=== PATIENT | female | born 1990 | race Two or more races ===

== ENCOUNTER 2017-02-12 07:15 | Day surgery (SDC) | payer MEDICAID ==
[~2017-02-12] VITALS: Ht 162.6 cm; Wt 83.9 kg
[~2017-02-12 07:15] MED LIST: PREN-96 PO
[2017-02-12] MEDS ORDERED: SODIUM CHLORIDE 0.9% 1,000 ML IVB ONE (07:29)
[2017-02-12] MEDS ORDERED: ONDANSETRON HCL 4 MG/2 ML VIAL IV ONE ×2 (07:30→10:15)
[2017-02-12] MEDS ORDERED: HYDROmorphone HCL 2 MG/ML VL IV ONE (07:30)
[2017-02-12] MEDS ORDERED: LACT. RINGERS/OXYTOCIN 20UNITS 1,000 ML IV ONE (07:45)
[2017-02-12 07:55] LABS: Hematocrit 34.8 % (36.0-46.0); Hemoglobin 11.6 g/dL (12.2-16.2); Mean Corpuscular Hemoglobin 27.8 pg (28.0-32.0); Mean Corpuscular Hgb Conc. 33.4 g/dL (32.0-36.0); Mean Corpuscular Volume 83.3 fL (80.0-100.0); Platelet Count (auto) 346 10^3/uL (140-450); Red Cell Distribution Width 15.1 % (11.6-16.0); SUSPECT VIEW TRANSMISSION; White Blood Cell 21.5 10^3/uL (4.4-10.8)
[2017-02-12 08:21] LABS: BUN/Creatinine Ratio 10.7; Bilirubin, Total 0.2 mg/dL (0.2-1.0); Calcium 8.6 mg/dL (8.5-10.1); Metamyelocytes % 0; Myelocytes % 0; Potassium 3.4 mmol/L (3.5-5.1); Promyelocytes % 0; Reactive Lymphocytes 0
[2017-02-12 08:37] LABS: INR 0.93 (0.9-1.15)
[2017-02-12 09:04] LABS: Platelet Estimate Adequate
[2017-02-12 09:05] LABS: Ovalocytes FEW
[2017-02-12] MEDS ORDERED: ceFAZolin 1GM/50ML D5W 50 ML IV ONE (09:09)
[2017-02-12] MEDS ORDERED: fentaNYL CITRATE 100 MCG/2 ML VL ONE (09:14)
[2017-02-12] MEDS ORDERED: MIDAZOLAM HCL 1MG/1ML-2 ML VIAL ONE (09:15)
[2017-02-12] MEDS ORDERED: DEXAMETHASONE SOD PHOS 10MG/1ML VIAL INJ IV ONE (09:20)
[2017-02-12] MEDS ORDERED: GLYCOPYRROLATE 0.2 MG/ML 1ML VIAL IV ONE (09:20)
[2017-02-12] MEDS ORDERED: LACTATED RINGER'S 1,000 ML IV SCH (10:05)
[2017-02-12] MEDS ORDERED: HYDROmorphone HCL 2 MG/ML VL IV PRN (10:15)
[2017-02-12] MEDS ORDERED: ONDANSETRON HCL 4 MG/2 ML VIAL IV PRN (10:15)
[2017-02-12 11:13] VITALS: BP 96/64
== END 2017-02-12 08:30 | disposition home or self-care (01) ==
LOC: EDBD 07:15 → ER 07:17 → SUR 07:18 → ER 08:30
PROVIDERS: ATTEND Specialist
DX: O03.4 Incomplete spontaneous abortion without complication (principal); F10.99 Alcohol use, unspecified with unspecified alcohol-induced disorder; E66.9 Obesity, unspecified
CPT/HCPCS: 59812; J1170; J3010; J7030; 36415; 80053; 84702; 85007; 85027; 85610; 85730; 86850; 86900; 86901; 96365; 96375; J0690; J1100; J2250; J2405; J2590